=== PATIENT | female | born 1985 | race Caucasian/White ===

== ENCOUNTER 2024-03-12 11:53 | Emergency (ER) | payer OTHER ==
[2024-03-12 12:23] VITALS: BP 115/71; PULSE 71; RESP 18; TEMP 97.3; BMI 23.4
[2024-03-12] MEDS ORDERED: BACITRACIN ZINC 15 GM TUBE TOPICAL OINTMENT TP ONE (13:03)
[2024-03-12] MEDS ORDERED: BACITRACIN ZINC 15 GM TUBE TOPICAL OINTMENT ONE (13:04)
== END 2024-03-12 13:07 | disposition home or self-care (01) ==
LOC: JERFT 11:53
DX: J33.9 Nasal polyp, unspecified (principal)
CPT/HCPCS: 99283-25